=== PATIENT | female | born 1945 | race Hispanic/Latino ===

== ENCOUNTER 2017-04-30 14:06 | Outpatient (CLI) | payer MEDICARE ==
--- NOTE | 2017-04-30 21:10 | XRay Report ---
FINAL REPORT PROCEDURE: XR KNEE 4+V LT TECHNIQUE: Four view left knee HISTORY: LEFT KNEE PAIN COMPARISON: No prior studies are available for comparison. FINDINGS: Mild prominence of the soft tissues of the knee which may reflect obesity and/or edema. Left knee prosthesis in place. Large body habitus. No dislocation. Suspect effusion. IMPRESSION: No fracture or dislocation seen
== END 2017-04-30 14:07 | disposition home or self-care (01) ==
LOC: SPVIMAG 14:06
PROVIDERS: ATTEND Orthopaedic Surgery Sports Medicine
DX: M25.562 Pain in left knee (principal); Z96.652 Presence of left artificial knee joint